=== PATIENT | male | born 1935 | race Asian ===

== ENCOUNTER 2019-03-25 08:25 | Inpatient (IN) | payer MEDICARE ==
[~2019-03-25] VITALS: Ht 177.8 cm; Wt 65.0 kg
[2019-03-25 08:27] VITALS: Ht 177.8 cm; Wt 65.0 kg
[2019-03-25 08:40] VITALS: BP 116/64
--- NOTE | 2019-03-25 08:48 | NUR ---
PT BIBA FROM HOME DUE TO HAVING SOB FOR 2 DAYS AND INCREASING ONE HOUR BEFORE PT ARRIVED TO ED. PER MEDIC PT WAS GCS 15, RESP 34 LABORED, 15L NRM, BG 362, SINUS TACH. PER MEDIC PT HAS HX OF METS LUNG CANCER. PER PT STS THAT HE HAS CHEST PRESSURE ROXY UPPER CHEST, DENIES ANY NUMBNESS/DIZZINESS. PT ARRIVED TO ED WITH LABORED BREATHING, ALERT AND ORIENTED, WHEN SPEAKING PT IS ABLE TO SAY ONE WORD INBETWEEN BREATHS. PT HAS ROXY EDEMA TO ROXY LOWER EXTREMTIES, KUNAL CATH NOTED TO LEFT UPPER CHEST, MASS TO RT CHEEK. SKINS ARE DRY,WARM AND PINK. PT STS THAT HE HAS BEEN HAVING A DRY COUGH THAT IS NON PRODUCTIVE. PT PLACED ON CM. VSS. WILL CONTINUE TO MONITOR.
--- NOTE | 2019-03-25 08:49 | NUR ---
NOTED COOLING BANDAGE TO RIGHT UPPER BUTTOCK. NOTED APPROXIMATELY 4 INCH DISCOLORATION OF SKIN TO MID BUTTOCKS. PER SPOUSE PT HAS NEVER HAD WOUNDS.
--- NOTE | 2019-03-25 09:25 | NUR ---
PER SPOUSE PT HAS NOT BEEN EATING ALL WEEK. PT COMPLETED RADIATION X 10 DAYS AGO AND IS STARTING CHEMOTHERAPY IN 2 DAYS. PER SPOUSE PT HAS BEEN LOOSING SIGNIFICANT AMOUNT OF WEIGHT. SPOUSE STS PT REPORTS THAT BREATHING "FEELS BETTER". VSS. WILL CONTINUE TO MONITOR. DR. BOYCE MADE AWARE.
--- NOTE | 2019-03-25 09:30 | NUR ---
SPOUSE AT BEDSIDE.
[2019-03-25 09:37] LABS: PLATELET COUNT 79 x10^3mcL (130-400); RED CELL DISTRIBUTION WIDTH 17.5 % (11.5-14.5)
[2019-03-25] MEDS ORDERED: DEXAMETHASONE4 MG PO (09:47)
[2019-03-25] MEDS ORDERED: NORCO1 TA2 GT (09:48)
[2019-03-25] MEDS ORDERED: CVS NIGHTTIME118 ML PO (09:49)
[2019-03-25] MEDS ORDERED: EVAC-U-GEN8.6 M1 PO (09:50)
[2019-03-25] MEDS ORDERED: PANTOPRAZOLE SO40 M1 PO (09:50)
[2019-03-25] MEDS ORDERED: EFUDEX5% TOP (09:51)
[2019-03-25] MEDS ORDERED: MIRTAZAPINE15 M2 PO (09:52)
[2019-03-25] MEDS ORDERED: ONDANSETRON4 M3 PO (09:52)
[2019-03-25] MEDS ORDERED: ALBUTEROL1.25 MG/3 IH (09:53)
[2019-03-25] MEDS ORDERED: TERAZOSIN HCL2 MG PO (09:54)
[2019-03-25] MEDS ORDERED: VOLOS TOP (09:56)
[2019-03-25] MEDS ORDERED: LIDOCAINE AND P1 CRE TOP (09:57)
[2019-03-25 09:58] LABS: ALKALINE PHOSPHATASE 230 U/L (46-116); ALT/SGPT 72 U/L (16-63); AST/SGOT 57 U/L (15-37); BILIRUBIN TOTAL 0.65 mg/dL (0.20-1.00); CALCIUM 8.6 mg/dL (8.5-10.1); CARBON DIOXIDE 23.5 mmol/L (21-32); CHLORIDE SERUM 99 mmol/L (98-107); CREATININE SERUM 1.9 mg/dL (0.7-1.3); GLUCOSE SERUM 352 mg/dL (74-106); SODIUM SERUM 137 mmol/L (136-145); TOTAL PROTEIN, SERUM 6.9 g/dL (6.4-8.2)
[2019-03-25 10:01] LABS: ALBUMIN 1.9 g/dL (3.4-5.0)
[2019-03-25 10:02] LABS: POTASSIUM SERUM 5.6 mmol/L (3.5-5.1)
[2019-03-25 10:03] LABS: microscopic required? YES; urine erythrocyte TRACE (NEGATIVE)
--- NOTE | 2019-03-25 10:44 | NUR ---
MEDICATED PER EMAR.
--- NOTE | 2019-03-25 11:04 | NUR ---
PT IN POSITION OF COMFORT. BIPAP IN PLACE AND PT STS THAT HE FEELS HIS BREATHING "FEELS BETTER". PT DENIES ANY CHEST PAIN AT THIS TIME. VSS. NO DISTRESS NOTED. SPOUSE AT BEDSIDE. WILL CONTINUE TO MONITOR.
--- NOTE | 2019-03-25 12:01 | NUR ---
PT STS THAT HE IS HAVING DIFFICULTY BREATHING. SPO2 98%. VSS. DR. LACEY MADE AWARE. RT AT BEDSIDE. WILL CONTINUE TO MONITOR.
--- NOTE | 2019-03-25 12:05 | NUR ---
URINE OUTPUT HAS INCREASED APPROXIMATELY 50CC.
--- NOTE | 2019-03-25 12:12 | NUR ---
RESP AT BEDSIDE, BREATHING TX IN PROGRESS.
[2019-03-25 13:55] LABS: T3 TOTAL 0.47 ng/mL
--- NOTE | 2019-03-25 13:57 | NUR ---
REPORT GIVEN TO SEBASTIAN WALTON TO ASSUME CARE OF PT.
--- NOTE | 2019-03-25 14:05 | NUR ---
Total fluid resuscitation amount ordered for patient is 2000 mls. At time of admission/transfer to ICU, 1700 mls have infused. Last BP was 130/78 and ISABELLE CORTES is aware that BP will need to be reassessed after fluid infusion completed.
--- NOTE | 2019-03-25 14:10 | NUR ---
RECEIVED THE PATIENT [facility] ED VIA [facility]; PATIENT LETHARGIC BUT ORIENTED TO PERSON AND PLACE AT THIS TIME. PATIENT IS ON BIPAP WITH I/E 10/6 AND FIO2 50%. PATIENT HAS LABORED BREATHING. PATIENT WAS TRANSFERRED TO ICU BED; MONITOR HOOKED UP, WHICH SHOWS SINUS TACHYCARDIA. KUNAL CATH TO LEFT UPPER CHEST WALL. IV SITES TO RIGHT WRIST AND LEFT HAND. IVF WITH NORMAL SALINE AT 150ML/HR. FOREMAN CATH TO GRAVITY DRAINING SCANT AMOUNT OF CASEY URINE. PATIENT WAS POSITIONED COMFORTLY IN BED. SIDE RAILS UP X3. BED IS AT LOWEST POSITION. PATIENT WAS ORIENTED TO ROOM AND EQUIPMENT. CALL LIGHT WITHIN REACH. WILL LET THE AND THE SON IN TO SEE THE PATIENT.
[2019-03-25 14:31] VITALS: BP 136/70
[2019-03-25 14:31] LABS: BAND NEUTROPHIL 14 % (0-10); BASOPHIL 0 % (0-2); SEGMENTED NEUTROPHILS 75 % (37-75)
[2019-03-25 14:33] LABS: PLATELET MORPHOLOGY PLATELETS DECREASED; rbc morphology (normal/abnorm) ABNORMAL (NORMAL)
[2019-03-25 15:10] LABS: CHOLESTEROL/HDL RATIO 2.9; MAGNESIUM 2.9 mg/dL (1.8-2.4); PHOSPHOROUS 5.2 mg/dL (2.5-4.9)
[2019-03-25 15:38] LABS: FREE T4 1.32 ng/dL (0.76-1.46); FREE THYROXINE INDEX 2.2 ug/dL (1.4-4.5); T4(THYROXINE) 5.7 ug/dL (4.7-13.3)
[2019-03-25 16:02] LABS: AMPHETAMINE QUAL UR NONE DETECTED (See below)
--- NOTE | 2019-03-25 16:10 | NUR ---
US TECH IS AT BEDSIDE FOR US GALLBLADER AND ANASTASIIA.
--- NOTE | 2019-03-25 16:30 | NUR ---
ISOGEL MATTRESS SET UP FOR THE PATIENT DUE LOW MICHELLE SCALE.
--- NOTE | 2019-03-25 17:20 | NUR ---
DR ORTIZ AT BEDSIDE TO ASSESS PATIENT. DR ORTIZ SPOKE WITH PATIENT'S AND SON GILBERTO REGARDING POC AND CODE STATUS. INTUBATION DISCUSSED AT LENGTH WITH FAMILY. ALL QUESTIONS AND CONCERNS ADDRESSED. FAMILY WOULD LIKE TO DISCUSS AMONGST THEMSELVES HOW THEY SHOULD PROCEED WITH CARE AND WILL ADVISE STAFF OF THEIR DECISION.
[2019-03-25 18:00] VITALS: BP 136/74
--- NOTE | 2019-03-25 18:00 | NUR ---
INTUBATION NOTE; PER DR. ORTIZ VERBALLY ORDERED AT BEDSIDE: AT 1757, 50MCG OF PROPOFOL IVP GIVEN TO THE PATIENT. AT 1758, 20 MG OF ROCURONIUM IVP GIVEN TO THE PATIENT. AT 1759, ANOTHER 25MCG OF PROPOFOL IVP GIVEN TO THE PATIENT. AT 1800, PATIENT WAS INTUBATED WITH ETT 7.5 AT 24 CM AT LIPLINE. BOLUS OF 1L NS GIVEN TO THE PATIENT TO SUPPORT BLOOD PRESSURE. AFTER THAT PROPOFOL INITIATED AT 5MCG/KG/MIN TO COMFORT THE PATIENT WHILE WAITING FOR VERSED AND FENTANYL AVAILABLE.
--- NOTE | 2019-03-25 18:02 | NUR ---
ETT CONNECTED TO VENT VIA VCV/AC MODE: FIO2 100%, RATE 14, VT 350, AND PEEP 5 BY RT GUILLORY.
--- NOTE | 2019-03-25 18:08 | NUR ---
RECEIVED A PHONE CALL FROM DR. WAKEFIELD, RADIOLOGIST INFORMING PATIENT HAS DVT TO RIGHT FEMORAL; DR. ORTIZ IS AT THE STATION AND MADE AWARE. DR. ORTIZ CALLED DR. WILBURN AND TALKED TO HIM ON THE PHONE ABOUT THIS.
--- NOTE | 2019-03-25 18:15 | NUR ---
OGT INSERTED TO PATIENT'S MOUTH AND VERIFIED WITH SOME AIR BOLUS BY THE CHARGE NURSE. AWAITING FOR CXR TO VERIFY THE PLACEMENT.
--- NOTE | 2019-03-25 19:08 | NUR ---
SPOKE WITH DR ORTIZ AND REPORTED MOST RECENT ABG S/P INTUBATION. NEW ORDERS RECEIVED TO CHANGE RATE TO 18 AND VT 400. TELEPHONED JOSI INGRAM AND MADE AWARE.
--- NOTE | 2019-03-25 19:10 | NUR ---
RECEIVED REPORT FROM JO ANN WALTON. WILL RESUME CARE.
[2019-03-25 19:25] VITALS: BP 150/81
--- NOTE | 2019-03-25 20:37 | NUR ---
RT PRATER AT BEDSIDE FOR ABG BLOOD DRAW.
--- NOTE | 2019-03-25 20:45 | NUR ---
CHEST X-RAY BEING DONE AT BEDSIDE TO VERIFY PLACEMENT OF OGT AND ETT.
--- NOTE | 2019-03-25 21:05 | NUR ---
TIDAL VOLUME INCREASED TO [address] ORTIZ TELEPHONE ORDER. ISABELLE MCMAHON NOTIFIED. WILL CONTINUE TO MONITOR.
[2019-03-25 21:20] VITALS: BP 147/84
--- NOTE | 2019-03-25 22:09 | NUR ---
TELEPHONED DR. KRAMER MAKING HER AWARE OF CHEST X-RAY RESULTS. OGT AND ETT NOT IN PROPER POSITION. NEW ORDER FOR RT TO PUSH ETT IN FURTHER AND OGT OUT.
[2019-03-25 22:15] VITALS: BP 144/91
--- NOTE | 2019-03-25 22:15 | NUR ---
RT AT BEDSIDE AND MYSELF. PER DR. KRAMER ORDERS OGT PULLED OUT 2 CM AND ETT ADVANCED 3CM.
--- NOTE | 2019-03-25 22:40 | NUR ---
PT TAKEN OUT OF UNIT FOR CT OF HEAD W/OUT CONTRAST ACCOMPANIED BY MYSELF, 2 RT'S, AND CASING BLOWER.
--- NOTE | 2019-03-25 23:06 | NUR ---
PT BACK FROM CT OF HEAD W/O CONTRAST AND HOOKED BACK UP TO AUTOMOTIVE SERVICE MANAGEMENT TEACHER. NAD NOTED.
[2019-03-26] VITALS (17 sets, daily range): BP systolic 94–144; BP diastolic 53–85
--- NOTE | 2019-03-26 00:31 | NUR ---
Relayed Ct Scan of the head result to Dr Acosta with no new orders. Will continue to monitor.
--- NOTE | 2019-03-26 02:31 | NUR ---
CHEST X-RAY SHOWS OGT NEEDS TO BE ADVANCED 5CM. NEW ORDER PLACED BY DR. KRAMER TO ADVANCE 5CM. ORDER CARRIED OUT.
--- NOTE | 2019-03-26 04:10 | NUR ---
PER DR. KRAMER ORDER, OGT HAS PROPER PLACEMENT, OK TO USE OGT.
--- NOTE | 2019-03-26 04:31 | NUR ---
HOUSEHOLD REFRIGERATOR MECHANIC AT BEDSIDE FOR BLOOD DRAW.
[2019-03-26 05:03] LABS: CALCIUM 7.4 mg/dL (8.5-10.1); CARBON DIOXIDE 22.8 mmol/L (21-32); CHLORIDE SERUM 107 mmol/L (98-107); CREATININE SERUM 1.3 mg/dL (0.7-1.3); GLUCOSE SERUM 205 mg/dL (74-106); MAGNESIUM 2.6 mg/dL (1.8-2.4); PHOSPHOROUS 3.6 mg/dL (2.5-4.9); SODIUM SERUM 139 mmol/L (136-145)
[2019-03-26 05:15] LABS: PLATELET COUNT 33 x10^3mcL (130-400); RED CELL DISTRIBUTION WIDTH 17.8 % (11.5-14.5)
[2019-03-26 06:12] LABS: BAND NEUTROPHIL 2 % (0-10); BASOPHIL 0 % (0-2); MONOCYTE 4 % (0-7); SEGMENTED NEUTROPHILS 82 % (37-75); rbc morphology (normal/abnorm) ABNORMAL (NORMAL)
--- NOTE | 2019-03-26 06:30 | NUR ---
DR. WILBURN MADE AWARE OF LAB VALUES PLT 33, MAG 2.6, BUN 59, CREAT 1.3.
--- NOTE | 2019-03-26 07:10 | NUR ---
GAVE REPORT TO JO ANN WALTON. ALL QUESTIONS AND CONCERNS ADDRESSED.
--- NOTE | 2019-03-26 07:31 | NUR ---
TITRATED FIO2 TO 30%.
--- NOTE | 2019-03-26 07:40 | NUR ---
PATIENT IS ON VENT WITH SEDATION OF FENTANYL AT 0.75MCG/KG/HR AND VERSED AT 1MG/HR. PATIENT RESPONDS TO VERBAL STIMULI AND FOLLOWS SIMPLE COMMANDS. ROXY PUPILS WITH SLUGGISH REACTION TO LIGHT. ETT 7.[address] AND SECURED AT 27CM AT LIPLINE. ETT TO VENT VIA VCV/AC MODE: FIO2 30%, RATE 20, VT 450, AND PEEP 5. OGT IN PLACE AND SECURED TO ETT. OGT PLACEMENT VERIFIED WITH SOME AIR BOLUS. OGT TO TUBE FEEDING WITH VITAL AF AT 10ML/HR AND FREE WATER FLUSH AT 50ML/Q4HR. TUBE FEEDING RATE INCREASED TO 20ML/HR. KUNAL CATH TO LEFT UPPER CHEST WALL WITH DRESSING INTACT. IVF NS IS INFUSING AT 100ML/HR. TELE # 9 SHOWS NORMAL SINUS RHYTHMS WITH EPISODES OF SINUS TACHYCARDIA. OTHER IV SITES TO RIGHT WRIST AND LEFT HAND. FOREMAN CATH TO GRAVITY DRAINING YELLOW URINE. PATIENT IS ON ISOGEL MATTRESS. BED IS AT LOWEST POSITION. HEAD OF BED ELEVATED. EXTREMITIES OFFLOADED.
--- NOTE | 2019-03-26 10:05 | NUR ---
PATIENT IS SO ANXIOUS; VERSED TITRATED FROM 1MG/HR UP TO 2MG/HR.
--- NOTE | 2019-03-26 10:42 | NUR ---
ECHOCARDIOGRAM COMPLETED.
--- NOTE | 2019-03-26 11:20 | NUR ---
DR. ORTIZ IS AT BEDSIDE EXAMING THE PATIENT, AND PLACING PATIENT ON CPAP AT 30%, PEEP [address] ORTIZ ADDRESSING THE CONCERNS FROM THE FAMILY INCLUDING SON-GILBERTO AND -DESTINY.
--- NOTE | 2019-03-26 13:05 | NUR ---
DR. CARR IN TO SEE THE PATIENT AND ADDRESSING THE CONCERNS FROM THE AND DAUGHTER, KEVIN.
--- NOTE | 2019-03-26 13:25 | NUR ---
INCREASED FIO2 TO 35%.
--- NOTE | 2019-03-26 13:50 | NUR ---
PHYSICAL THERAPY NOTE EVAL ORDER RECEIVED, CHART REVIEWED, TALKED TO DR LARES AND ICU. PATIENT IS INTUBATED; NOT AN APPROPRIATE CANDIDATE FOR PHYSICAL THERAPY EVAL AT THIS TIME
--- NOTE | 2019-03-26 15:51 | NUR ---
RESIDUAL RECHECKED 0. TUBE FEEDING INCREASED FROM 20ML/HR TO 30ML/HR TO REACH THE GOAL ORDERED.
--- NOTE | 2019-03-26 17:52 | NUR ---
PLACED PT BACK ON A/C VC SETTINGS.
--- NOTE | 2019-03-26 18:05 | NUR ---
RECIEVED REPORT FROM ISABELLE CHERRY. NURSING UPDATES. POC DISCUSSED. SEE SHIFT ASSESSMENT FOR ASSESSMENT.
--- NOTE | 2019-03-26 18:23 | NUR ---
REPORT GIVEN TO JUDY KAUR RN.
--- NOTE | 2019-03-26 18:40 | NUR ---
PATIENT VERY ANXIOUS. BITING ON TUBE. CALMING MEASURES IN PLACE AND FAMILY @ BEDSIDE. PT STILL AGITATED. VERSED TITRATED FROM 2MG/HR UP TO 4MG/HR. PT TOLERATED WELL. PT RESTING CALMLY IN BED.
--- NOTE | 2019-03-26 19:43 | NUR ---
Received pt lying in bed comfortably with family members at the bedside. Received report that pt will be transfer to [facility]. I placed a call to [facility] to follow up on transfer and expecting time of turkey picker and hospital. Spoke to Ramila ([facility] piano case and bench assembler), pt would be transfer to [facility]. technical account manager stated that she is still working on a bed and will call us when a bed is available. Will continue to monitor in ICU at this time.
--- NOTE | 2019-03-26 19:50 | NUR ---
Ramila ([place] hospice case manager) call back with room number 243. Pt going to [facility] [phone], room 243 picker and packer time at 2100. Will continue to monitor.
--- NOTE | 2019-03-26 20:17 | NUR ---
REPORT GIVEN TO ISABELLE VALDEZ @ [facility]. NURSING UPDATES. POC DISCUSSES. ALL QUESTIONS ANSWERED AWAITING PT TRANSPORT.
--- NOTE | 2019-03-26 20:26 | NUR ---
NOTIFIED PER TRANSPORT TEAM ESTIMATED ARRIVAL 2099.
--- NOTE | 2019-03-26 21:57 | NUR ---
TRANSPORT TEAM ARRIVAL. NURSING UPDATES. POC DISCUSSED. RELIEVED OF DUTIES BY ISABELLE DAIGLE. NURSING ASSESSMENT FROM SHIFT ASSESSMENT. VERSED W/ 20ML LEFT AND FENT W/ 25ML LEFT. NO ACUTE CHANGES IN PT CONDITION. TRANSPORT TEAM TO [facility].
--- NOTE | 2019-03-29 08:00 | NUR ---
WOUND CONSULT NOT DONE, PT. DISCHARGED.
== END 2019-03-26 22:01 | disposition short-term general hospital (02) | DRG 871 ==
LOC: ED 08:25 → IC 12:44
PROVIDERS: Emergency Medicine; ADMIT Internal Medicine
PROC: 0BH17EZ Insertion of Endotracheal Airway into Trachea, Via Natural or Artificial Opening (ICD-10-PCS; principal; 2019-03-25)
PROC: 5A1945Z Respiratory Ventilation, 24-96 Consecutive Hours (ICD-10-PCS; 2019-03-25)
DX: A41.9 Sepsis, unspecified organism (principal); J18.9 Pneumonia, unspecified organism; J96.01 Acute respiratory failure with hypoxia; I21.A1 Myocardial infarction type 2; N17.0 Acute kidney failure with tubular necrosis; E43 Unspecified severe protein-calorie malnutrition; C16.9 Malignant neoplasm of stomach, unspecified; C78.02 Secondary malignant neoplasm of left lung; C78.01 Secondary malignant neoplasm of right lung; C78.7 Secondary malignant neoplasm of liver and intrahepatic bile duct; C79.31 Secondary malignant neoplasm of brain; C79.51 Secondary malignant neoplasm of bone; I82.411 Acute embolism and thrombosis of right femoral vein; R65.20 Severe sepsis without septic shock; D69.59 Other secondary thrombocytopenia; E87.5 Hyperkalemia; E11.65 Type 2 diabetes mellitus with hyperglycemia; E83.39 Other disorders of phosphorus metabolism; E83.42 Hypomagnesemia; D64.9 Anemia, unspecified
CPT/HCPCS: 36600; 82962; 83880; 84439; 85378; A4628; G0378; J0696; J1100; J2250; J2543; J2704; J2930; J3010; J3370; J3490; J7030; J7060; J7620; Q0092